=== PATIENT | female | born 1945 | race Caucasian/White ===

== ENCOUNTER 2016-08-16 19:47 | Emergency (ER) | payer OTHER, MEDICARE ==
[~2016-08-16] VITALS: Ht 170.2 cm; Wt 74.8 kg
--- NOTE | 2016-08-16 20:56 | ED GENERAL ADULT ---
History of Present Illness General Chief Complaint: General Adult Stated Complaint: WEAKNESS X4 DAYS Source: patient Exam Limitations: no limitations Vital Signs & Intake/Output Vital Signs & Intake/Output Vital Signs Date Time Temp Pulse Resp B/P B/P Pulse O2 O2 Flow FiO2 Mean Ox Delivery Rate 08/17 1116 98.8 72 18 178/79 97 Room Air 08/17 0909 97.6 82 18 148/77 98 Room Air 08/17 0756 95 20 176/90 100 Room Air 08/17 0645 97.9 85 16 134/64 99 Room Air 08/17 0303 98.4 82 17 133/61 99 Room Air 08/16 2254 98.3 86 18 135/62 98 Room Air 08/16 2048 98.2 08/16 2012 100 Room Air 08/16 1954 98.0 74 17 149/70 100 Room Air ED Intake and Output 08/17 0000 08/16 1200 Intake Total 1050 Output Total Balance 1050 Intake, IV 1050 Patient 165 lb Weight Weight Estimated Measurement Method Allergies Coded Allergies: No Known Allergies (08/16/16) Reconcile Medications Acetaminophen With Codeine (Acetaminophen-Cod #3 Tablet) 300 MG-30 MG TABLET 1 TAB PO TID PRN PAIN (Reported) Bupropion HCl 100 MG TABLET 2 TAB PO BID MENTAL HEALTH (Reported) Diphenoxylate HCl/Atropine (Lomotil 2.5-0.025 MG Tablet) 2.5 MG-0.025 MG TABLET 1 TAB PO TID PRN COLITIS (Reported) Gabapentin 300 MG CAPSULE 1 CAP PO TID NERVE PAIN (Reported) Ibuprofen 800 MG TABLET 1 TAB PO PRN PAIN (Reported) Lisinopril 10 MG TABLET 1 TAB PO DAILY BP (Reported) Lorazepam 1 MG TABLET 1 TAB PO TID ANXIETY (Reported) Multivitamin (Multi-Day Vitamins) 1 EACH TABLET 1 TAB PO DAILY SUPPLEMENT ( Reported) Omeprazole 40 MG CAPSULE.DR 1 CAP PO BID GI (Reported) Sumatriptan Succinate (Imitrex) 50 MG TABLET 1 TAB PO AD PRN MIGRAINES ( Reported) Zolpidem Tartrate 10 MG TABLET 1 TAB PO QPM SLEEP (Reported) Triage Note: PT TO WALK-IN CLINIC C/O WEAKNESS X4 DAYS, POSSIBLE UTI, AND ?ULCER. PT HAS HX OF ULCER. PT ARRIVES ALERT AND ORIENTED. DENIES ANY PAIN AT THIS TIME. URINARY FREQUENCY, NO PAINFUL URINATION. Triage Nurses Notes Reviewed? yes HPI: 71-year-old female with a history of migraines, GERD, peptic ulcer disease, esophageal tear, and breast cancer presenting with generalized weakness and malaise 4 days. Patient states that she thinks she may have a UTI, but denies dysuria, hematuria, urinary frequency/urgency. Patient endorses nausea and thinks that she may have another ulcer. Denies vomiting, abdominal pain, diarrhea, fevers. Of note patient reports that she recently relocated to [place] from [place] approximately 3 months after being by her . States that she was previously seen in the psychiatry Department of [facility] for suicidal ideation. Reports that she previously thought about sitting in her car with the engine running. States that she never acted on this and that she no longer has these thoughts. Denies current suicidal ideation. Denies recent EtOH or drug use. (ANYA DEL CASTILLO PA-C) Past History Travel History Traveled to [place] past 21 day No Medical History Any Pertinent Medical History? see below for history Neurological: migraine EENT: NONE Cardiovascular: NONE Respiratory: pneumonia Gastrointestinal: GERD, lactose intolerance, ESOPHAGEAL TEAR Hepatic: NONE Renal: NONE Musculoskeletal: chronic back pain Psychiatric: NONE Endocrine: NONE Blood Disorders: NONE Cancer(s): breast cancer [employer]ER/Reproductive: NONE Surgical History Surgical History: non-contributory Psychosocial History What is your primary language Irish Tobacco Use: Never used Family History Hx Contributory? No (ANYA DEL CASTILLO PA-C) Review of Systems Review of Systems Constitutional: Reports: malaise, weakness. Denies: chills, diaphoresis, fever. EENTM: Reports: no symptoms. Respiratory: Reports: no symptoms. Cardiovascular: Reports: no symptoms. GI: Reports: nausea. Denies: abdominal pain, constipation, diarrhea, melena, bloody stool, vomiting. Genitourinary: Reports: no symptoms. Musculoskeletal: Reports: no symptoms. Skin: Reports: no symptoms. Neurological/Psychological: Reports: no symptoms. (ANYA DEL CASTILLO PA-C) Physical Exam Physical Exam General Appearance: well developed/nourished, no apparent distress, alert, comfortable, dysphoric mood Head: atraumatic Ears, Nose, Throat: normal ENT inspection Neck: normal inspection, supple, no cervical lymphadenopathy Respiratory: normal breath sounds, lungs clear Cardiovascular: regular rate/rhythm, normal peripheral pulses Gastrointestinal: normal bowel sounds, soft, diffusely tender to palpation, there is some voluntary guarding, no involuntary guarding, no rebound tenderness Rectal: normal exam, normal rectal tone, heme negative stool Back: No CVAT Extremities: no edema Neurologic/Psych: awake, alert, oriented x 3, normal mood/affect Skin: intact, normal color, warm/dry Core Measures ACS in differential dx? No CVA/TIA Diagnosis: No Severe Sepsis Present: No Septic Shock Present: No (ABUNDIO FALL,ANYA) Progress Differential Diagnoses I considered the following diagnoses in my evaluation of the patient: [Viral syndrome versus gastritis versus peptic ulcer disease versus pancreatitis versus biliary versus UTI versus depression] Plan of Care: Orders Procedure Date/time Status Heart Healthy Diet 08/17 B Active Continuous Observation Monitor 08/17 0740 Active URINE DRUGS OF ABUSE 08/16 2118 Complete ED CRISIS PSYCH CONSULT 08/16 2112 Active CULTURE,URINE 08/16 2037 Active URINALYSIS 08/16 2037 Complete LIPASE 08/16 2037 Complete COMPREHENSIVE METABOLIC PANEL 08/16 2037 Complete CBC WITHOUT DIFFERENTIAL 08/16 2037 Complete EKG 08/16 2037 Active Laboratory Tests 08/16/16 2242: Anion Gap 11, Estimated GFR > 60, BUN/Creatinine Ratio 11.7, Glucose 88, Calcium 8.9, Total Bilirubin 0.7, AST 19, ALT 25, Alkaline Phosphatase 99, Total Protein 6.5, Albumin 3.9, Globulin 2.6, Albumin/Globulin Ratio 1.5, Lipase 33 08/16/16 2212: Urine Opiates Screen 791.00, Methadone Screen 41, Barbiturate Screen < 60, Ur Phencyclidine Scrn < 6.00, Amphetamines Screen < 100, U Benzodiazepines Scrn < 85, Urine Cocaine Screen < 50, Urine Cannabis Screen < 5.00, Urine Color STRAW, Urine Clarity CLEAR, Urine pH 7.0, Ur Specific [place] 1.010, Urine Protein NEG, Urine Ketones 15 H, Urine Nitrite NEG, Urine Bilirubin NEG, Urine Urobilinogen 0.2, Ur Leukocyte Esterase SMALL H, Ur Microscopic SEDIMENT EXAMINED, Urine RBC RARE, Urine WBC RARE, Ur Epithelial Cells OCCAS, Urine Bacteria RARE H, Urine Hemoglobin NEG, Urine Glucose NEG 08/16/168: CBC w Diff NO MAN DIFF REQ, RBC 4.40, MCV 83.2, MCH 28.1, RDW 13.6, MPV 7.3 L, Gran % 83.6 H, Lymphocytes % 11.8 L, Monocytes % 4.2, Eosinophils % 0.2, Basophils % 0.2, Absolute Granulocytes 6.2, Absolute Lymphocytes 0.9 L, Absolute Monocytes 0.3, Absolute Eosinophils 0, Absolute Basophils 0, PUBS MCHC 33.8 Microbiology 08/17 2211 URINE ROUT: Urine Culture - RES Pt signed out to RONEL Bacon with labs and CT scan pending. Plan for Crisis eval after medically cleared. (ABUNDIO FALL,ANYA) 9:59 PM PATIENT SIGNED OUT TO ME BY RONEL DEL CASTILLO. LABS, CT, CRISIS CONSULT PENDING. (AP MCMULLEN,JOSÉ) Initial ED EKG: normal axis, rhythm (sinus), rate (85), no ST T wave changes (ABUNDIO FALL,ANYA) Hand-Off Endorsed To: FRANNIE MARLOW MD Endorsed Time: 2300 Pending: CT, consult (CRISIS), labs (CMP) (AP MCMULLEN,JOSÉ) Differential Diagnoses I considered the following diagnoses in my evaluation of the patient: Diagnostic Imaging: Viewed by Me: CT Scan. Discussed w/RAD: CT Scan. Radiology Impression: abd/pelvic ct... no acute change. Hand-Off Endorsed To: CALLUM MCMULLEN,ETHAN Armas Endorsed Time: 0700 Pending: consult Comments: PATIENT: DISHA YEUNG PRESENT AGE: 71 PATIENT ACCOUNT NO: [id number] : 46 LOCATION: [facility] ORDERING PHYSICIAN: ANYA DEL CASTILLO PA-C SERVICE DATE: 08/16/16 EXAM TYPE: CAT - CT ABD & PELVIS W IV CONTRAST EXAMINATION: CT ABDOMEN AND PELVIS WITH CONTRAST CLINICAL INFORMATION: Appendicitis versus diverticulitis. Diffuse abdominal pain with significant rebound. COMPARISON: No relevant prior imaging. TECHNIQUE: Multidetector volumetric imaging was performed of the abdomen and pelvis before and after the IV administration of 95 mL of Omnipaque 350 intravenous contrast. Sagittal and coronal reformatted images were obtained on the technologist's workstation. DLP: 573.18 mGy-cm FINDINGS: LUNG BASES: There is left basilar subsegmental atelectasis. No pleural effusion. There is mild thickening of the anterior pericardium which may represent a trace pericardial effusion. LIVER, GALLBLADDER, AND BILIARY TREE: Liver attenuation is homogeneous with the exception of a rounded nonspecific low density subcapsular lesion within the right lobe of the liver best illustrated on axial image 27 of 104 series 2. The gallbladder is not visualized suggesting a history of a cholecystectomy. The common duct is prominent. No intrahepatic biliary ductal dilatation. PANCREAS: Unremarkable. SPLEEN: Unremarkable. ADRENAL GLANDS: Unremarkable. KIDNEYS AND URETERS: Kidneys demonstrate symmetric nephrographic enhancement. There is no discrete renal parenchymal mass. No abnormal perinephric inflammation or collection. No abnormal mass or calcifications visualized along the expected course of the right or left ureters. BLADDER: Unremarkable. GASTROINTESTINAL TRACT: There is a small hiatal hernia. The stomach and small bowel are otherwise unremarkable. Numerous diverticula are visualized within the distal colon. Although the appendix is not definitively visualized on this examination there are no abnormal inflammatory changes of the base of the cecum to suggest acute appendicitis. There is no free intraperitoneal air or fluid. ABDOMINAL WALL: No significant hernia is appreciated. LYMPH NODES: There are no pathologically enlarged mesenteric or retroperitoneal lymph nodes. VASCULAR: Calcified atheromatous plaque involves the abdominal aorta and iliac vessels. PELVIC VISCERA: There is a retroverted uterus. No worrisome adnexal mass. OSSEOUS STRUCTURES: There is no acute osseous finding. There are chronic changes of a decompressive laminectomy at L4 and L5 as well as partial resection of the L3 spinous process. There is multilevel degenerative spondylosis of the lumbar spine. No evidence of acute fracture and no subluxation. IMPRESSION: There is no discrete abnormal finding to provide an explanation for this patient's abdominal pain. DICTATED BY: WINNIE PACE MD DATE/TIME DICTATED:08/17/1617 APPLICATION TECHNICAL DESIGNER:SCOTT DATE/TIME TRANSCRIBED:08/17/1617 CONFIDENTIAL, DO NOT COPY WITHOUT APPROPRIATE AUTHORIZATION. <Electronically signed in Other Vendor System> SIGNED BY: WINNIE PACE MD 08/17 0043 (KASHMIR MCMULLEN,FRANNIE Ozuna) Comments: Patient has been seen and evaluated by the supervisor white sugar. Patient has no point with at [facility] tomorrow. Patient is stable for discharge. (CALLUM MCMULLEN,ETHAN Armas) Departure Departure Condition: Stable Referrals: UNKNOWN (PCP/Family) Departure Forms: Customer Survey General Discharge Information (ABUNDIO FALL,ANYA) PA/LOCKSTITCHER Co-Sign Statement Statement: ED Attending supervision documentation- [X] I saw and evaluated the patient. I have also reviewed all the pertinent lab results and diagnostic results. I agree with the findings and the plan of care as documented in the PA's/LOCKSTITCHER's documentation. [X] I have reviewed the ED Record and agree with the PA's/LOCKSTITCHER's documentation. [] Additions or exceptions (if any) to the PAs/LOCKSTITCHER's note and plan are summarized below: [] (AP MCMULLEN,JOSÉ) Departure Comments 08/17/16, 2:08am... discussed results of ct scan with patient who was sleeping comfortably. pt to be evaluated by crises team this morning. PA/LOCKSTITCHER Co-Sign Statement Statement: ED Attending supervision documentation- [x] I saw and evaluated the patient. I have also reviewed all the pertinent lab results and diagnostic results. I agree with the findings and the plan of care as documented in the PA's/LOCKSTITCHER's documentation. [] I have reviewed the ED Record and agree with the PA's/LOCKSTITCHER's documentation. [] Additions or exceptions (if any) to the PAs/LOCKSTITCHER's note and plan are summarized below: [] (KASHMIR MCMULLEN,FRANNIE Ozuna) Departure Disposition: HOME OR SELF CARE Clinical Impression Primary Impression: Weakness Secondary Impressions: Depression Additional Instructions: YOU HAVE AN APPOINTMENT AT [facility] TOMORROW MORNING AT 10AM WITH GRAEME EMMANUEL IN [place] [phone]. PLEASE BRING YOUR ID CARD AND INSURANCE CARD WITH YOU. CALL 211 OR RETURN TO THE ER FOR ANY CONCERNS (CALLUM MCMULLEN,ETHAN Armas) Critical Care Note Critical Care Note Critical Care Time: non-applicable (ABUNDIO FALL,ANYA)
--- NOTE | 2016-08-16 21:41 | ED PSY CRISIS COLLATERAL NOTE ---
Collateral Note Collateral Note Family/Inform/Melody Contacts: SW spoke with the patients son, Jarad Johnson ([phone]), for collateral information. Jarad notes that he has never known that patient to have any mental health issues. Jarad notes that he is not aware of any current or previous suicidal or homicidal ideations. Jarad reports that in November of 2014, his father (the patients ), "left a note and walked out on her." Jarad reports that the patient has not been dealing well with the pending divorce. Jarad reports that they bought a house with an in-law setup and that patient has been staying with them for about 3 months. Jarad has noticed that "she has good days and bad days," noting that he can tell she has been depressed. He believes that the patient spoke with a therapist in [place] after the divorce and that it would be helpful for her to speak to someone again.
[2016-08-16] MEDS ORDERED: BUPROPION HCL100 M2 PO (21:42)
[2016-08-16] MEDS ORDERED: GABAPENTIN300 M2 PO (21:43)
[2016-08-16] MEDS ORDERED: ACETAMINOPHEN-1 EAC3 PO (21:43)
[2016-08-16] MEDS ORDERED: ZOLPIDEM TARTRA10 M1 PO (21:43)
[2016-08-16] MEDS ORDERED: LORAZEPAM1 M1 PO (21:43)
[2016-08-16] MEDS ORDERED: LISINOPRIL10 M1 PO (21:43)
[2016-08-16] MEDS ORDERED: LOMOTIL 2.5-0.1 EACH PO (21:44)
[2016-08-16] MEDS ORDERED: IMITREX50 M1 PO (21:44)
[2016-08-16] MEDS ORDERED: OMEPRAZOLE40 M1 PO (21:44)
[2016-08-16] MEDS ORDERED: IBUPROFEN800 M1 PO (21:45)
[2016-08-16] MEDS ORDERED: MULTI-DAY VITA1 EACH PO (21:45)
[2016-08-16 22:02] LABS: ABSOLUTE BASOPHIL COUNT 0 /CUMM (0.0-0.2); ABSOLUTE EOSINOPHIL COUNT 0 /CUMM (0.0-0.7); ABSOLUTE GRANULOCYTE CT 6.2 /CUMM (1.4-6.5); ABSOLUTE LYMPH COUNT 0.9 /CUMM (1.2-3.4); ABSOLUTE MONOCYTE COUNT 0.3 /CUMM (0.10-0.60); BASOPHIL % 0.2 % (0.0-2.0); EOSINOPHIL % 0.2 % (0-5); GRANULOCYTE % 83.6 % (42.2-75.2); HEMATOCRIT 36.6 % (37-47); MEAN CORPUSCULAR HGB 28.1 PG (27.0-31.0); MEAN CORPUSCULAR HGB CONC 33.8 G/DL (33.0-37.0); MEAN CORPUSCULAR VOLUME 83.2 FL (81.0-99.0); MEAN PLATELET VOLUME 7.3 FL (7.4-10.4); PLATELET COUNT 254 /CUMM (130-400); RBC DISTRIBUTION WIDTH 13.6 % (11.5-14.5); WHITE BLOOD CELL COUNT 7.4 /CUMM (4.8-10.8)
--- NOTE | 2016-08-17 00:43 | CT SCAN REPORT ---
EXAMINATION: CT ABDOMEN AND PELVIS WITH CONTRAST CLINICAL INFORMATION: Appendicitis versus diverticulitis. Diffuse abdominal pain with significant rebound. COMPARISON: No relevant prior imaging. TECHNIQUE: Multidetector volumetric imaging was performed of the abdomen and pelvis before and after the IV administration of 95 mL of Omnipaque 350 intravenous contrast. Sagittal and coronal reformatted images were obtained on the technologist's workstation. DLP: 573.18 mGy-cm FINDINGS: LUNG BASES: There is left basilar subsegmental atelectasis. No pleural effusion. There is mild thickening of the anterior pericardium which may represent a trace pericardial effusion. LIVER, GALLBLADDER, AND BILIARY TREE: Liver attenuation is homogeneous with the exception of a rounded nonspecific low density subcapsular lesion within the right lobe of the liver best illustrated on axial image 27 of 104 series 2. The gallbladder is not visualized suggesting a history of a cholecystectomy. The common duct is prominent. No intrahepatic biliary ductal dilatation. PANCREAS: Unremarkable. SPLEEN: Unremarkable. ADRENAL GLANDS: Unremarkable. KIDNEYS AND URETERS: Kidneys demonstrate symmetric nephrographic enhancement. There is no discrete renal parenchymal mass. No abnormal perinephric inflammation or collection. No abnormal mass or calcifications visualized along the expected course of the right or left ureters. BLADDER: Unremarkable. GASTROINTESTINAL TRACT: There is a small hiatal hernia. The stomach and small bowel are otherwise unremarkable. Numerous diverticula are visualized within the distal colon. Although the appendix is not definitively visualized on this examination there are no abnormal inflammatory changes of the base of the cecum to suggest acute appendicitis. There is no free intraperitoneal air or fluid. ABDOMINAL WALL: No significant hernia is appreciated. LYMPH NODES: There are no pathologically enlarged mesenteric or retroperitoneal lymph nodes. VASCULAR: Calcified atheromatous plaque involves the abdominal aorta and iliac vessels. PELVIC VISCERA: There is a retroverted uterus. No worrisome adnexal mass. OSSEOUS STRUCTURES: There is no acute osseous finding. There are chronic changes of a decompressive laminectomy at L4 and L5 as well as partial resection of the L3 spinous process. There is multilevel degenerative spondylosis of the lumbar spine. No evidence of acute fracture and no subluxation. IMPRESSION: There is no discrete abnormal finding to provide an explanation for this patient's abdominal pain.
--- NOTE | 2016-08-17 09:22 | ED PSYCH CRISIS CONSULTATION ---
Crisis Consult Basic Assessment Date of Consult: 08/17/16 Responsible Person/Accompanied By: Son, Jarad Johnson, Insurance Authorization: Insurance #1: Insurance name: MEDICARE A Phone number: Policy number: [id number] Group number: Authorization number: ED Provider: Patient's ED Provider: JOSÉ DE SOUZA MD Primary Care Physician: Patient's PCP: Dr. Patricia Giordano at [facility] PCP's Current Psychiatrist: at [facility], now transferring care to [place] Chief Complaint: General Adult Patient's Quote: "I get very nervous." Present Illness: 71 F presented to the ED on 08/16/16 @ 1954, after c/o weakness for 4 days at an urgent care clinic, who sent her here. She noticed BRB in stool that morning, and has a history of chronic diarrhea, esophageal tear, breast cancer, migraine. The patient denies any acute psychiatric distress, and admits to anxiety and depression. She denies panic events, but becomes very anxious when driving in new or strange locales. The patient has moved to [place] to live with her son, his christian and their children approximately 3-1/2 months ago. She had previously lived in [facility] with her , who left her 1-1/2 years ago. She has been followed for psychiatry at [facility] since then. Her provider at [facility] changed her antidepressant, fluoxetine, prescribed for anxiety and depression per her report, to Wellbutrin, due to hyponatremia. The Wellbutrin has recently been increased, and the patient has been nervous about taking the increased dose. She reports that 2 months after her left her, she had a plan to get in her car with the motor running, but did not carry through with that. She had been admitted to [facility] in April 2015 for depression. She has been seeing a therapist while in [place]. She is in the process of transferring her care to [place], and is currently followed for primary care by Dr. Patricia Giordano at [facility], , who has seen her twice. The M.D. wanted the patient to enter an intensive outpatient program. We have left a message with her office requesting a return call, which we expect today. Patient's Address: [address] [place] [address] Other Phone Number: Who Do You Live With? Son Family/Informants Interviewed: Son, Jarad Johnson Expect return call from current PCP at [place], Dr. Patricia Giordano Allergies - Coded Allergies: No Known Allergies (08/16/16) Current Medications - Scheduled Medications Bupropion HCl 100 MG TABLET 2 TAB PO BID MENTAL HEALTH #120 (Reported) Entered as Reported by ARIEL HART on 08/16/162141 Gabapentin 300 MG CAPSULE 1 CAP PO TID NERVE PAIN #270 (Reported) Entered as Reported by ARIEL HART on 08/16/162142 Lisinopril 10 MG TABLET 1 TAB PO DAILY BP #90 (Reported) Entered as Reported by ARIEL HART on 08/16/162142 Lorazepam 1 MG TABLET 1 TAB PO TID ANXIETY #90 (Reported) Entered as Reported by ARIEL HART on 08/16/162142 Multivitamin (Multi-Day Vitamins) 1 EACH TABLET 1 TAB PO DAILY SUPPLEMENT ( Reported) Entered as Reported by ARIEL HART on 08/16/162144 Omeprazole 40 MG CAPSULE.DR 1 CAP PO BID GI #180 (Reported) Entered as Reported by ARIEL HART on 08/16/162143 Zolpidem Tartrate 10 MG TABLET 1 TAB PO QPM SLEEP #30 (Reported) Entered as Reported by ARIEL HART on 08/16/162142 Scheduled PRN Medications Acetaminophen With Codeine (Acetaminophen-Cod #3 Tablet) 300 MG-30 MG TABLET 1 TAB PO TID PRN PAIN #90 (Reported) Entered as Reported by ARIEL HART on 08/16/162142 Diphenoxylate HCl/Atropine (Lomotil 2.5-0.025 MG Tablet) 2.5 MG-0.025 MG TABLET 1 TAB PO TID PRN COLITIS #270 (Reported) Entered as Reported by ARIEL HART on 08/16/162143 Ibuprofen 800 MG TABLET 1 TAB PO PRN PAIN #270 (Reported) Entered as Reported by ARIEL HART on 08/16/162144 Sumatriptan Succinate (Imitrex) 50 MG TABLET 1 TAB PO AD PRN MIGRAINES #10 ( Reported) Entered as Reported by ARIEL HART on 08/16/162143 Laboratory Results: Laboratory Tests 08/16/162241: Anion Gap 11, Estimated GFR > 60, BUN/Creatinine Ratio 11.7, Glucose 88, Calcium 8.9, Total Bilirubin 0.7, AST 19, ALT 25, Alkaline Phosphatase 99, Total Protein 6.5, Albumin 3.9, Globulin 2.6, Albumin/Globulin Ratio 1.5, Lipase 33 08/16/162211: Urine Opiates Screen 791.00, Methadone Screen 41, Barbiturate Screen < 60, Ur Phencyclidine Scrn < 6.00, Amphetamines Screen < 100, U Benzodiazepines Scrn < 85, Urine Cocaine Screen < 50, Urine Cannabis Screen < 5.00, Urine Color STRAW, Urine Clarity CLEAR, Urine pH 7.0, Ur Specific [place] 1.010, Urine Protein NEG, Urine Ketones 15 H, Urine Nitrite NEG, Urine Bilirubin NEG, Urine Urobilinogen 0.2, Ur Leukocyte Esterase SMALL H, Ur Microscopic SEDIMENT EXAMINED, Urine RBC RARE, Urine WBC RARE, Ur Epithelial Cells OCCAS, Urine Bacteria RARE H, Urine Hemoglobin NEG, Urine Glucose NEG 08/16/162147: CBC w Diff NO MAN DIFF REQ, RBC 4.40, MCV 83.2, MCH 28.1, RDW 13.6, MPV 7.3 L, Gran % 83.6 H, Lymphocytes % 11.8 L, Monocytes % 4.2, Eosinophils % 0.2, Basophils % 0.2, Absolute Granulocytes 6.2, Absolute Lymphocytes 0.9 L, Absolute Monocytes 0.3, Absolute Eosinophils 0, Absolute Basophils 0, PUBS MCHC 33.8 Microbiology 08/17 2211 URINE ROUT: Urine Culture - RES Past History Past Medical History Neurological: migraine EENT: NONE Cardiovascular: NONE Respiratory: pneumonia Gastrointestinal: GERD, lactose intolerance, ESOPHAGEAL TEAR Hepatic: NONE Renal: NONE Musculoskeletal: chronic back pain Psychiatric: NONE Endocrine: NONE Blood Disorders: NONE Cancer(s): breast cancer 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 Forward thinking and goal oriented. Psychiatric Treatment History Psych Treatment Psychiatric Treatment Yes Inpatient Treatment Yes Outpatient Treatment Yes Location of Treatment In: [place]. Outpt: [facility] and [facility] Reason for Treatment Depressiona and anxiety Dates of Treatment Inpt 04/2015. currently in outpt therapy at [facility] with meds from [place] PCP Response to Treatment unknown Diagnosis by History: Major depressive disorder, single, moderate Adjustment disorder NOS Rule out generalized anxiety disorder Alcohol use disorder in sustained remission for 39 years Substance Use/Abuse History Drug Use/Abuse Substances Used/Abused Yes Substance Used/Abused Alcohol Last Used 39 years ago Substance Abuse Treatment Substance Abuse Treatment Past Substance Abuse [place] Yes Inpatient Treatment No (not evaluated) Outpatient Treatment No (Used AA) Location of Treatment [place] [facility] with a sponsor Current Mental Status Mental Status Orientation: Person, Place, Situation Affect: Anxious Speech: Hyper-verbal, Soft Neuro-vegetative: Appetite Decreased, Energy Decreased, Sleep Disturbance Appearance Appearance- Dress/Hygiene: Hospital garb, but well-groomed Behaviors Thought Process: Logical/Rational Thought Content: WNL Memory: Short term memory Insight: Fair SI/HI Risk Assessment Past Suicidal Ideation/Attempts Yes Current Suicidal Ideation/Att No Past Homicidal Ideation/Att: No Current Homicidal Ideation/Attempts No Degree of Intent: Had a plan, but no intent Risk Factors: chronic/serious med cond., high anxiety/distress, SA/MH hospitalized, substance abuse PTSD Checklist PTSD Done? patient declined ED Management Sitter: No Restraints: No DSM5/PS Stressors/Medical Prob Diagnosis' (DSM 5, Stressors, Medical): F32.1 Major depressive disorder, single, moderate, with anxiety, rule out relapse vs. recurrent episode. Rule out unspecified anxiety disorder with possible panic. F10.20 Alcohol use disorder in sustained remission for 39 years Current GAF: 60 Departure Disposition Psych Medical Clearance Date: 08/17/16 Medically Cleared at: 0830 Time Started: 0830 Time Ended: 09 Psychiatrist Consulted: Mirela MCMULLEN,Edward Date Disposition Established: 08/17/16 Time Disposition Established: 1045 Plan for Disposition - Modality: [facility] Facility: [facility] Rationale for Disposition: The patient would benefit from a mental health track intensive outpatient program here at [place]. She is not suicidal, psychotic, nor delirious. She is agreeable to coming to [facility], but will need to arrange her afternoon baby- sitting schedule at home, and she also realizes she will bneed to taper off her lorazepam. Additional Instructions: 1. The patient is to taper off lorazepam upon admission to [facility]. They will handle the taper schedule. His appointment is on 08/18/2016 at 10 AM with Mu Cueto at [address] [place] [address], . She is to bring her photo ID and her insurance card. 2. Discharge summary should be obtained from [facility]. 3. Awaiting return call from PCP regarding plan to treat recurrence of hyponatremia.
[2016-08-17 14:19] VITALS: BP 180/92
== END 2016-08-17 14:31 ==
LOC: ERH 19:47
PROVIDERS: Physician Assistant
DX: R53.1 Weakness (principal); F32.9 Major depressive disorder, single episode, unspecified; R11.0 Nausea
CPT/HCPCS: 74177; 80307; 81001; 87086; 93005; 93010; 96374; G0463; J2765